=== PATIENT | female | born 1945 | race Caucasian/White ===

== ENCOUNTER → 2018-04-19 10:51 | Outpatient (CLI) | payer MEDICARE, SELFPAY ==
[2018-04-19 12:39] LABS: Anion Gap 6 (5-15); BUN 14 mg/dL (7-18); BUN/Creat Ratio 16.3 RATIO (10-20); Calcium,Total 9.4 mg/dL (8.5-10.1); Chloride 101 mmol/L (98-107); Cholesterol 144 mg/dL (200); Creatinine, Serum 0.86 mg/dL (0.55-1.02); EST Glomerular Filtration Rate 69 mL/min (>60); Est Glom Filt Rate - Afr Amer 83 mL/min (>60); Glucose 94 mg/dL (74-106); High Density Lipoprotein 54 mg/dL; Potassium 3.8 mmol/L (3.5-5.1); Sodium Level 137 mmol/L (136-145); Triglycerides 86 mg/dL; Very Low Density Lipoprotein 17 mg/dL (5-40)
== END ==
PROVIDERS: Family Provider Family Medicine; PCP Family Medicine; Referring Provider Family Medicine; Visit Provider Family Medicine
DX: E78.00 Pure hypercholesterolemia, unspecified (principal); I10 Essential (primary) hypertension
CPT/HCPCS: 36415; 80048; 80061

== ENCOUNTER → 2019-04-18 11:28 | Outpatient (CLI) | payer MEDICARE, SELFPAY ==
[2019-04-18 14:23] LABS: Absolute Lymphocyte Count 2.03 X10^3/uL (0.83-4.51); Absolute Neutrophil Count 2.6 X10^3/uL (2.0-7.7); Basophil# 0.03 X10^3/uL; Basophil% 0.6 % (0-1); Eosinophil# 0.03 X10^3/uL; Eosinophils% 0.6 % (0-5); Hemoglobin 14.4 g/dL (12.0-15.0); Lymphocyte # 2.03 X10^3/ul (4.0); Lymphocyte % 38.4 % (19-41); Mean Corp Hgb Conc 31.3 g/dL (32-36); Mean Corpuscular Hgb 31.1 pg (27.0-32.0); Mean Corpuscular Volume 99.4 fL (81-99); Mean Platelet Vol. 10.8 fl (6.2-12.0); Monocyte# 0.58 X10^3/uL; NRBC Flagged by Analyzer 0 % (0-5); Neutrophil # 2.61 X10^3/uL (2.7-7.7); Neutrophil % 49.2 % (47-70); Platelet Count 147 K/mm3 (150-450); RBC Distribution Width CV 12.7 % (11.6-14.6); RBC Distribution Width SD 46.4 fl (35.1-43.9); Red Blood Count 4.63 M/mm3 (4.2-5.4); White Blood Count 5.3 K/mm3 (4.4-11.0)
[2019-04-18 15:02] LABS: Anion Gap 9 (5-15); BUN 17 mg/dL (7-18); BUN/Creat Ratio 21.2 RATIO (10-20); Calcium,Total 9.4 mg/dL (8.5-10.1); Chloride 103 mmol/L (98-107); Cholesterol 154 mg/dL (200); EST Glomerular Filtration Rate 74 mL/min (>60); Est Glom Filt Rate - Afr Amer 89 mL/min (>60); Glucose 72 mg/dL (74-106); High Density Lipoprotein 64 mg/dL; Potassium 3.9 mmol/L (3.5-5.1); Sodium Level 141 mmol/L (136-145); Triglycerides 79 mg/dL; Very Low Density Lipoprotein 16 mg/dL (5-40)
== END ==
PROVIDERS: Family Provider Family Medicine; PCP Family Medicine; Referring Provider Family Medicine; Visit Provider Family Medicine
DX: I49.1 Atrial premature depolarization (principal); E78.00 Pure hypercholesterolemia, unspecified; I10 Essential (primary) hypertension
CPT/HCPCS: 36415; 80048; 80061; 85025

== ENCOUNTER → 2020-06-09 09:19 | Outpatient (CLI) | payer MEDICARE, SELFPAY ==
[2020-06-09 12:42] LABS: AST(SGOT) 30 U/L (15-37); Alanine Aminotransfer ALT/SGPT 37 U/L (13-56); Anion Gap 3 (5-15); BUN 16 mg/dL (7-18); BUN/Creat Ratio 18.6 RATIO (10-20); Chloride 101 mmol/L (98-107); Cholesterol 158 mg/dL (200); Creatinine, Serum 0.86 mg/dL (0.55-1.02); EST Glomerular Filtration Rate 68 mL/min (>60); Est Glom Filt Rate - Afr Amer 82 mL/min (>60); Glucose 89 mg/dL (74-106); High Density Lipoprotein 61 mg/dL; Potassium 3.8 mmol/L (3.5-5.1); Sodium Level 137 mmol/L (136-145); Triglycerides 108 mg/dL; Very Low Density Lipoprotein 22 mg/dL (5-40)
== END ==
PROVIDERS: PCP Family Medicine; Referring Provider Family Medicine; Visit Provider Family Medicine
DX: I10 Essential (primary) hypertension (principal); E78.00 Pure hypercholesterolemia, unspecified
CPT/HCPCS: 36415; 80048; 80061; 84450; 84460

== ENCOUNTER → 2020-12-17 10:45 | Outpatient (CLI) | payer MEDICARE, SELFPAY ==
[2020-12-17 13:08] LABS: AST(SGOT) 38 U/L (15-37); Alanine Aminotransfer ALT/SGPT 30 U/L (13-56); Anion Gap 7 (5-15); BUN 16 mg/dL (7-18); BUN/Creat Ratio 19.3 RATIO (10-20); Calcium,Total 9.3 mg/dL (8.5-10.1); Chloride 101 mmol/L (98-107); Cholesterol 156 mg/dL (200); Creatinine, Serum 0.83 mg/dL (0.55-1.02); EST Glomerular Filtration Rate 71 mL/min (>60); Est Glom Filt Rate - Afr Amer 86 mL/min (>60); Glucose 86 mg/dL (74-106); High Density Lipoprotein 63 mg/dL; Potassium 3.8 mmol/L (3.5-5.1); Sodium Level 137 mmol/L (136-145); Triglycerides 84 mg/dL; Very Low Density Lipoprotein 17 mg/dL (5-40)
== END ==
PROVIDERS: PCP Family Medicine; Referring Provider Family Medicine; Visit Provider Family Medicine
DX: E78.00 Pure hypercholesterolemia, unspecified (principal); I10 Essential (primary) hypertension
CPT/HCPCS: 36415; 80048; 80061; 84443; 84450; 84460

== ENCOUNTER → 2020-12-20 10:19 | Outpatient (CLI) | payer MEDICARE, SELFPAY ==
--- NOTE | 2020-12-20 10:21 | RAD_ITS ---
STUDY: X-RAY - ABDOMEN/PELVIS REASON FOR EXAM: Female, 75 years old. CONSTIPATION TECHNIQUE: AP supine and upright views of the abdomen and pelvis. COMPARISON: None. FINDINGS: Normal visualized lung bases. There is a moderate amount of colonic fecal material. There is no demonstrated free abdominal air. The visualized liver, spleen and kidneys are grossly normal in size and morphology. Aortic calcification Normal visualized osseous structures. RAD/Abd Inc Decub and/or Erect IMPRESSION: Moderate amount of fecal material is seen in the colon. Electronically Signed: Campbell Hudson MD at 10:30 EDT , Service support ,
== END ==
PROVIDERS: PCP Family Medicine; Referring Provider Family Medicine; Visit Provider Family Medicine
DX: K59.00 Constipation, unspecified (principal)
CPT/HCPCS: 74019

== ENCOUNTER → 2021-02-18 13:05 | Outpatient (CLI) | payer MEDICARE, SELFPAY ==
[2021-02-18 15:55] LABS: Thyroid Stim Hormone (TSH) 0.03 uIU/mL (0.358-3.74)
== END ==
PROVIDERS: PCP Family Medicine; Referring Provider Family Medicine; Visit Provider Family Medicine
DX: E03.9 Hypothyroidism, unspecified (principal)
CPT/HCPCS: 36415; 84443

== ENCOUNTER → 2021-04-22 12:13 | Outpatient (CLI) | payer MEDICARE, SELFPAY ==
[2021-04-22 15:37] LABS: Thyroid Stim Hormone (TSH) 5.29 uIU/mL (0.358-3.74)
== END ==
PROVIDERS: PCP Family Medicine; Referring Provider Family Medicine; Visit Provider Family Medicine
DX: K59.00 Constipation, unspecified (principal)
CPT/HCPCS: 36415; 84443

== ENCOUNTER → 2021-06-18 10:52 | Outpatient (CLI) | payer MEDICARE, SELFPAY ==
[2021-06-18 11:52] LABS: Thyroid Stim Hormone (TSH) 5.16 uIU/mL (0.358-3.74)
== END ==
PROVIDERS: PCP Family Medicine; Referring Provider Family Medicine; Visit Provider Family Medicine
DX: E03.9 Hypothyroidism, unspecified (principal)
CPT/HCPCS: 36415; 84443

== ENCOUNTER 2021-09-01 09:57 | Outpatient (CLI) | payer MEDICARE, SELFPAY ==
[2021-09-01 12:44] LABS: Thyroid Stim Hormone (TSH) 0.63 uIU/mL (0.358-3.74)
== END 2021-09-01 23:59 | disposition home or self-care (01) ==
LOC: MFPLAB 10:00
PROVIDERS: PCP Family Medicine; Referring Provider Family Medicine; Visit Provider Family Medicine
DX: E03.9 Hypothyroidism, unspecified (principal)
CPT/HCPCS: 36415; 84443

== ENCOUNTER 2022-04-22 07:35 | Inpatient (IN) | payer MEDICARE, SELFPAY ==
[2022-04-22] VITALS (11 sets, daily range): BP systolic 122–167; BP diastolic 56–92; PULSE 52–127; RESP 15–23; TEMP 36.2–36.8; O2SAT 97–100; BMI 21.2
--- NOTE | 2022-04-22 07:52 | EKG12_ITS ---
Test Reason : DYSRHYTHMIA Blood Pressure : / mmHG Vent. Rate : 062 BPM Atrial Rate : 062 BPM P-R Int : 142 ms QRS Dur : 078 ms QT Int : 424 ms P-R-T Axes : 058 053 -31 degrees QTc Int : 430 ms Normal sinus rhythm ST & T wave abnormality, consider lateral ischemia Abnormal ECG Confirmed by NILA BUCHANAN, MAURA ([id number]), editorial intern DOTTY RAI ([id number]) on 04/25/2022 1:44:12 PM Referred By: SAM Confirmed By:MAURA DOTSON MD
[2022-04-22 08:05] LABS: Absolute Lymphocyte Count 2.83 X10^3/uL (0.83-4.51); Basophil# 0.02 X10^3/uL; Basophil% 0.4 % (0-1); Eosinophil# 0.07 X10^3/uL; Eosinophils% 1.3 % (0-5); Hematocrit 46.3 % (37-47); Hemoglobin 14.8 g/dL (12.0-15.0); Lymphocyte # 2.83 X10^3/ul (0.83-4.51); Lymphocyte % 51.5 % (19-41); Mean Corpuscular Hgb 30.8 pg (27.0-32.0); Mean Corpuscular Volume 96.5 fL (81-99); Mean Platelet Vol. 10.2 fl (6.2-12.0); Monocyte% 10.9 % (0-10); NRBC Flagged by Analyzer 0 % (0-5); Neutrophil # 1.97 X10^3/uL (2.7-7.7); Neutrophil % 35.7 % (47-70); Platelet Count 147 K/mm3 (150-450); RBC Distribution Width CV 12.2 % (11.6-14.6); RBC Distribution Width SD 43.7 fl (35.1-43.9); White Blood Count 5.5 K/mm3 (4.4-11.0)
--- NOTE | 2022-04-22 08:31 | EX.ED.DYSGE1 ---
HPI History of Present Illness Chief Complaint: Palpitations Detail of Chief Complaint: Palpitations that started early this morning prior to presentation. Informant: patient and family Onset/Context/Timing Onset: Hours Context: Sudden Onset Timing: Continuous Quality: Palpitations and fast heart rate Location: Chest Current Severity: Mild Maximum Severity: Moderate Worsened by: Nothing Relieved by: Nothing Associated Symptoms Associated Symptoms: Chest discomfort with bilateral trapezius discomfort Narrative Narrative: DentalPatient is a 76-year-old woman with history of PACs on all. She also has history of hypercholesterolemia. She denies history of coronary artery disease. She denies history of thyroid disease. She denies weight gain or weight loss. She denies fever, chills night sweats. She had symptoms of COVID 2 weeks ago and had a positive test 1 week ago. She presently has mild nasal congestion. She denies nausea, vomiting or diarrhea. She denies urologic symptoms. She denies leg pain, swelling or discoloration. There is no history of VTE. Prior similar symptoms: Yes Recent Illness/Hospitalization: No PFSH PFS Medical History High cholesterol Hypertension Home Medications atenolol 50 mg tablet 50 mg PO DAILY 04/22/22 [History Last Taken Unknown] lovastatin 40 mg tablet 40 mg PO DAILY 04/22/22 [History Last Taken Unknown] Allergy/AdvReac Type Severity Reaction Status Date / Time No Known Allergies Allergy Verified 04/22/22 07:36 Social History (Updated 04/22/22 @ 08:[address] Hiram Giles MD) household members: none Smoking Status: Never smoker alcohol intake: never substance use type: does not use ROS ROS ED Constitutional Constitutional ED: Denies chills, fever(s), subjective, sweats or weight loss Eyes Eyes: Denies blurry vision, change in vision or diplopia ENT ENT ED: Denies ear pain, rhinorrhea or sore throat Cardiovascular Cardiovascular: Reports chest pain, palpitations and racing heartbeat; Denies orthopnea or paroxysmal nocturnal dyspnea Respiratory/Chest Respiratory/Chest: Denies cough, dyspnea, dyspnea on exertion, orthopnea or paroxysmal nocturnal dyspnea Gastrointestinal Gastrointestinal: Denies abdominal pain, constipation, diarrhea, melena, nausea or vomiting Genitourinary Genitourinary ED: Denies dysuria, hematuria or urinary frequency Musculoskeletal Musculoskeletal: Denies arthralgias, back pain, myalgias or neck pain Integumentary Denies Abrasions or rash Neurologic Neurologic: Denies headache(s), paresthesias or weakness Psychiatric Psychiatric: Denies anxiety or depression Endocrine Endocrinology: Denies cold intolerance, heat intolerance, polydipsia, polyphagia or polyuria Hematologic/Lymphatic Hematologic/Lymphatic: Reports systems reviewed and no addt'l complaints, except as documented, as per HPI and none; Denies anemia or easy bruising EXAM Physical Exam Const Vital Signs: 04/22/22 07:36 04/22/22 07:49 04/22/22 08:42 Temperature 97.9 F Temperature Source Temporal Pulse Rate 127 H 56 L 52 L Respiratory Rate 18 17 Blood Pressure 167/92 H 142/66 H Blood Pressure Mean 117 91 Pulse Ox 99 98 Oxygen Delivery Method Room Air Room Air 04/22/22 11:51 04/22/22 12:39 04/22/22 13:00 Temperature Temperature Source Pulse Rate 62 56 L 77 Respiratory Rate 23 H 20 H Blood Pressure 147/65 H 152/56 H 122/58 H Blood Pressure Mean 92 88 79 Pulse Ox 98 100 99 Oxygen Delivery Method Room Air Room Air Room Air Positive well nourished and well developed General Appearance ED: well developed and NAD; Negative for cyanotic or diaphoretic HEENT Reports moist mucous membranes HEENT Narrative: Head is atraumatic normocephalic. Ears normal. Nares patent. Uvula midline. No deviation tongue or protrusion. No erythema or exudate the posterior pharynx. Eyes PERRL and EOMs intact bilaterally General Eye ED: Negative for pale conjunctiva or scleral icterus Neck no lymphadenopathy, supple and no JVD Neck Narrative: There is no carotid bruits. Trachea is midline. Chest Wall inspection of chest normal and palpation of chest normal Resp normal respiratory effort and clear to auscultation bilaterally Cardio regular rhythm, S1 normal heart sound, S2 normal heart sound and no murmurs Rate: bradycardia GI normal to inspection, nondistended, normoactive bowel sounds, non-tender, non-distended and no masses; Negative for hepatosplenomegaly Back/Spine no CVA tenderness Thoracic Spine / Upper Back: Negative for thoracic spinal tenderness Lumbar Spine / Lower Back: Negative for lumbar spinal tenderness Extremity normal to inspection Neuro oriented x3, CN's II-XII intact bilaterally and no sensory deficits noted Sensorium / Orientation: alert Motor Exam: strength 5/5 throughout Psych mental status grossly normal Skin no rashes or lesions noted, no wounds and skin turgor normal MDM MDM MDM Narrative Medical decision making narrative: His monitor revealed a narrow complex tachycardia. There was significant artifact and unable to discern if this was sinus tachycardia versus atypical a flutter versus PAT. Twelve-lead EKG was obtained and reveals a sinus rhythm with no obvious ischemic changes. There is an ossific ST-T wave changes noted. Will obtain TSH to rule out thyroid disease. CBC to assess for anemia. Electrolyte panels assess renal function and electrolytes and specifically potassium. Troponin was obtained because of her complaint of chest discomfort and bilateral trapezius pain rule out cardiac etiology of her tachycardia. This may be due to recent COVID infection i.e. myocarditis. There is no evidence of pericarditis on the twelve-lead EKG. Lab Data Attestation: I reviewed the patient's lab results. Lab results narrative: CBC is remarkable for lymphocytosis. This is probably related to her recent COVID infection. Basic metabolic panel is unremarkable. Blood sugar is slightly elevated 112. First troponin is normal. 2-hour troponin pending. TSH is 0.31. Patient states she is on levothyroxine. Her dose has not been changed recently. This could contribute to her tachycardia as well as post COVID infection. Repeat pulmonary is 1329. This is consistent with patient having a non-STEMI. Dr. Ross had the cardiology was contacted to discuss anticoagulation and administration of Plavix. Labs: Laboratory Results - last 24 hr 04/22/22 04/22/22 04/22/22 07:55 07:55 07:55 WBC 5.5 RBC 4.80 Hgb 14.8 Hct 46.3 MCV 96.5 MCH 30.8 MCHC 32.0 RDW Std Deviation 43.7 RDW Coeff of Shi 12.2 Plt Count 147 L MPV 10.2 Immature Gran % (Auto) 0.200 Neut % (Auto) 35.7 L Lymph % (Auto) 51.5 H Cass % (Auto) 10.9 H Eos % (Auto) 1.3 Baso % (Auto) 0.4 Absolute Neuts (auto) 2.0 Absolute Lymphs (auto) 2.83 Nucleated RBC % 0 Sodium 140 Potassium 3.6 Chloride 103 Carbon Dioxide 28.0 Anion Gap 9 BUN 25 H Creatinine 0.95 Estim Creat Clear Calc 35.06 Est GFR (MDRD) Af Amer 73 Est GFR (MDRD) Non-Af 60 BUN/Creatinine Ratio 26.3 H Glucose 112 H Calcium 9.8 Troponin I High Sens 16 1329 H* TSH 0.31 L Rhythm Strip Rhythm Strip: Narrow complex tachycardia Rate: 128 EKG Initial EKG: Attestation: I personally reviewed and interpreted this EKG as follows: Interpretation: Sinus Rhythm (Rate is 62. MT interval 242 ms. Cures duration 78 ms. QT duration 4 to 24 ms. [place] is normal. There is an ossific ST-T wave changes in the lateral leads.) Treatment and Re-Evaluation Narrative: Patient will receive aspirin in the Emergency Department. Will discuss case with cardiology regarding anticoagulation and antiplatelets i.e. Plavix. Critical Care Time Critical Care Time: Yes Critical care time (excluding procedures): 30-74 minutes (32), Including time spent: (History, physical, documentation, review of prior records,), Discussing w/Patient &/or Family/Sr. Pricing Analyst (Discussion with patient initially, reevaluation and reason for repeat blood work and final results require admission), Discussing w/Consultants (Case discussed with Dr. Mosley the human resources operations manager. He would like patient anticoagulate with heparin. He does not want patient received Plavix.) and Arranging Admission or Transfer Discharge Plan Triage Chief Complaint: Palpitations ED Provider: Hiram Giles Dx/Rx/DC Orders Clinical Impression: Non-ST elevated myocardial infarction, Hypertension, Hypercholesterolemia Prescriptions: No Action lovastatin 40 mg tablet 40 mg PO DAILY Label Comments: TAKE 1 TABLET BY MOUTH ONCE DAILY atenolol 50 mg tablet 50 mg PO DAILY Label Comments: TAKE 1 TABLET BY MOUTH ONCE DAILY Primary Care Provider: Silke Solorio Referrals: Silke Solorio MD [Primary Care Provider] - Disposition Disposition: Acute Care Hospital [facility]
[2022-04-22 08:42] LABS: Anion Gap 9 (5-15); BUN 25 mg/dL (7-18); BUN/Creat Ratio 26.3 RATIO (10-20); Calcium,Total 9.8 mg/dL (8.5-10.1); Chloride 103 mmol/L (98-107); Creatinine, Serum 0.95 mg/dL (0.55-1.02); EST Glomerular Filtration Rate 60 mL/min (>60); Est Glom Filt Rate - Afr Amer 73 mL/min (>60); Estimated Creatinine Clearance 35.06 ml/min; Glucose 112 mg/dL (74-106); Potassium 3.6 mmol/L (3.5-5.1); Sodium Level 140 mmol/L (136-145); Thyroid Stim Hormone (TSH) 0.31 uIU/mL (0.358-3.74); Troponin-I HS 16 pg/mL (3.0-54.0)
[2022-04-22 13:38] LABS: Reflex Troponin-HS? (from REC) Y; Troponin-I HS (w/2H Reflex) 1329 pg/mL (3.0-54.0)
--- NOTE | 2022-04-22 13:49 | RAD_ITS ---
STUDY: X-RAY CHEST REASON FOR EXAM: Female, 76 years old. Chest pain TECHNIQUE: Single frontal view of the chest. COMPARISON: None. FINDINGS: The lungs are clear and expanded. There is no demonstrated pleural abnormality. Normal size heart. Normal mediastinum and michelle. Normal visualized pulmonary arteries. Normal visualized aortic arch and descending thoracic aorta. Normal visualized thoracic spine. Normal visualized ribs, clavicles, and shoulders. There is no demonstrated abnormality of the visualized soft tissue structures of the upper abdomen. RAD/Chest 1 View (Portable) IMPRESSION: Normal x-ray examination of the chest. Electronically Signed: Marilou Hernandez MD at 14:02 EDT ,
[2022-04-22] MEDS: Aspirin 81 MG TAB.CHEW 324 MG PO (13:58)
--- NOTE | 2022-04-22 14:28 | PCM.HP.STD ---
HPI - General General Date of Admission: 04/22/22 Date of Service: 04/22/22 Chief Complaint: Rapid pulse and chest discomfort. HPI Narrative JEOVANNY VAZ, is a 76 F with history of PACs/PVCs came to ED as she felt her pulse was racing. She counted her radial pulse and felt very fast although she did not feel much palpitation. She had feeling of irregular heartbeat/sometimes a skipped heartbeat today. She has history of PACs PVCs and had flutter waves feeling in the past. She also had Holter monitor. Her PCP started on Inderal long time ago for this indication. She also had mild achiness/discomfort over neck around her trapezius muscle and upper chest but denies chest pain, tightness or pressure. She denies dizziness lightheadedness, syncope. In the ED, rhythm strip and press manager shows heart rate 125 with PACs. Twelve-lead EKG sinus rhythm 62 bpm, IA 242 ms, QTC [address] depression about 1 mm in V3 to V6. No prior EKG to compare. Troponin is high, 1329. She has a history of hypertension and dyslipidemia but denies history of coronary artery disease, CHF, A. fib, valvular heart disease or other heart disease. Patient's father had pacemaker. Her elder sister recently had PCI and a stent. Her brother had bypass surgery. [facility] Medical History High cholesterol Hypertension Home Medications atenolol 50 mg tablet 50 mg PO DAILY 04/22/22 [History Last Taken Unknown] lovastatin 40 mg tablet 40 mg PO DAILY 04/22/22 [History Last Taken Unknown] Allergy/AdvReac Type Severity Reaction Status Date / Time No Known Allergies Allergy Verified 04/22/22 07:36 Social History household members: none Smoking Status: Never smoker alcohol intake: never substance use type: does not use ROS ROS Narrative Constitutional: No fever. HEENT: Mild sore throat. Reports systems reviewed and no addt'l complaints, except as documented Respiratory/Chest: Mild dry cough for about 2 weeks getting better. Had COVID symptoms for last 2 weeks tested positive about a week ago. Denies shortness of breath at rest or exertion Cardiovascular: As mentioned in HPI Gastrointestinal: Denies coffee ground emesis, hematemesis or vomiting Genitourinary: Denies burning urination or new urinary tract symptoms Musculoskeletal: Reports joint pain and limited range of motion Neurologic: Denies seizure-like activity skin: No ulcer. No rash Endocrinology: Reports systems reviewed and no addt'l complaints, except as documented Hematologic/Lymphatic: Reports systems reviewed and no addt'l complaints, except as documented Rest 14 ROS are negative except as mentioned in HPI Vital Signs Vital Signs Vital Signs: 04/22/22 07:36 04/22/22 07:49 04/22/22 08:42 Temperature 97.9 F Temperature Source Temporal Pulse Rate 127 H 56 L 52 L Respiratory Rate 18 17 Blood Pressure 167/92 H 142/66 H Blood Pressure Mean 117 91 Pulse Ox 99 98 Oxygen Delivery Method Room Air Room Air 04/22/22 11:51 04/22/22 12:39 04/22/22 13:00 Temperature Temperature Source Pulse Rate 62 56 L 77 Respiratory Rate 23 H 20 H Blood Pressure 147/65 H 152/56 H 122/58 H Blood Pressure Mean 92 88 79 Pulse Ox 98 100 99 Oxygen Delivery Method Room Air Room Air Room Air Weight Weight: 108 lb 7.479 oz Body Mass Index (BMI) 21.2 Physical Exam Narrative Physical exam General: Alert, Oriented x3, Cooperative HEENT: Atraumatic, PERRLA, EOMI, Normocephalic Oral: No Gingival or Mucosal Lesions/ Ulcerations Neck: Supple, No JVD, Negative Carotid Bruits Lungs: Air entry equal in bilateral lung bases. No crepitation/rhonchi Cardiovascular: Sinus, PAC, irregular rhythm, normal S1, Normal S2, No murmurs Abdomen: Bowel Sounds Present, Soft, Non Tender, Non-Distended : No renal angle tenderness. No suprapubic tenderness. Extremities: No edema, Capillary Refill Less than 3 Seconds Skin: No rashes, No breakdown Musculoskeletal: No Tenderness to Palpation of Joints or Extremities Neurological: Cranial nerves II-XII grossly intact, DTR 2+/4 and Symmetrical, Neuro grossly intact Psych/Mental Status: Normal Affect, Appropriate. Results Lab / Micro Data Result Diagrams: 04/22/22 07:55 04/22/22 07:55 Labs: Laboratory Results - last 24 hr 04/22/22 07:55: WBC 5.5, RBC 4.80, Hgb 14.8, Hct 46.3, MCV 96.5, MCH 30.8, MCHC 32.0, RDW Std Deviation 43.7, RDW Coeff of Shi 12.2, Plt Count 147 L, MPV 10.2, Immature Gran % (Auto) 0.200, Neut % (Auto) 35.7 L, Lymph % (Auto) 51.5 H, Coke % (Auto) 10.9 H, Eos % (Auto) 1.3, Baso % (Auto) 0.4, Absolute Neuts (auto) 2.0, Absolute Lymphs (auto) 2.83, Nucleated RBC % 0 04/22/22 07:55: Sodium 140, Potassium 3.6, Chloride 103, Carbon Dioxide 28.0, Anion Gap 9, BUN 25 H, Creatinine 0.95, Estim Creat Clear Calc 35.06, Est GFR (MDRD) Af Amer 73, Est GFR (MDRD) Non-Af 60, BUN/Creatinine Ratio 26.3 H, Glucose 112 H, Calcium 9.8, Troponin I High Sens 16, TSH 0.31 L 04/22/22 13:07: Troponin I High Sens 1329 H* 04/22/22 13:58: PT Cancelled, INR Cancelled, APTT Cancelled Rhythm Strip Rhythm Strip: Narrow complex tachycardia Rate: 128 Radiology Impression Chest X-Ray 04/22/22 13:49 IMPRESSION: Normal x-ray examination of the chest. Electronically Signed: Marilou Hernandez MD at 14:02 EDT , Assessment & Plan Assessment/Plan (1) Non-ST elevated myocardial infarction: PLAN: Plan This 76-year-old female came to ED for narrow complex sinus tachycardia and found to have high troponin and abnormal EKG. 1. Non-STEMI: EKG shows slight ST depression V3 to V6. KRYSTEN risk score 4/7. Patient is being admitted in PCU. Started on IV heparin drip and aspirin. Patient already on amlodipine continued. High intensity statin atorvastatin. 2D echo is ordered. Cardiology consulted to evaluate for cardiac cath. Patient does not have chest pain pressure tightness. 2. Narrow complex sinus tachycardia most probably sinus tachycardia with PAC: Patient did not had twelve-lead EKG when she had sinus tachycardia. She has history of PACs/PVCs. Currently normal sinus rhythm and heart rate is controlled. 3. Abnormal low TSH: TSH is low 0.31, Slightly below low normal 0.35. Repeat TSH and free T4 tomorrow AM. 5. Hypertension and dyslipidemia: Fasting for all tomorrow AM. VTE prophylaxis: Patient on heparin drip Living will/advanced directive/end of life care: Patient does not have living will or advanced directive. We talked in detail with patient and daughter regarding living will or advanced directive. After discussion of benefits/risks procedures involved with full code, DNR CC arrest and DNR CC, the patient and her daughter opted for DNRCC arrest with no intubation. Patient doesn't want artificial life support including intubation, tube feed, ventilator and/chest compression, central venous catheter, vasopressor and DC shock if needed Total time spent in [id number] encounter in discussion of advanced directive 16 minutes. Laboratory Results 04/22/22 07:55: WBC 5.5, RBC 4.80, Hgb 14.8, Hct 46.3, MCV 96.5, MCH 30.8, MCHC 32.0, RDW Std Deviation 43.7, RDW Coeff of Shi 12.2, Plt Count 147 L, MPV 10.2, Immature Gran % (Auto) 0.200, Neut % (Auto) 35.7 L, Lymph % (Auto) 51.5 H, Coke % (Auto) 10.9 H, Eos % (Auto) 1.3, Baso % (Auto) 0.4, Absolute Neuts (auto) 2.0, Absolute Lymphs (auto) 2.83, Nucleated RBC % 0 04/22/22 07:55: Sodium 140, Potassium 3.6, Chloride 103, Carbon Dioxide 28.0, Anion Gap 9, BUN 25 H, Creatinine 0.95, Estim Creat Clear Calc 35.06, Est GFR (MDRD) Af Amer 73, Est GFR (MDRD) Non-Af 60, BUN/Creatinine Ratio 26.3 H, Glucose 112 H, Calcium 9.8, Troponin I High Sens 16, TSH 0.31 L 04/22/22 13:07: Troponin I High Sens 1329 H* Charges/Coding Visit Charges Inpatient E&M: 73463 Init Hosp L3 Procedures Hospitalists Procedures: 52933 Advncd Care Plan 30 Min
[2022-04-22] MEDS: Heparin Injection (Vial) 5,000 UNIT/ML VIAL 3500 UNIT IV (14:33)
[2022-04-22] MEDS: HEPARIN/D5w 25,000 UNITS 25,000 UNITS/250 ML IV.SOLN. 7 UNITS CONT INF (14:33)
--- NOTE | 2022-04-22 15:03 | ECHOD_ITS ---
Reason For Study: NSTEMI Procedure This was a 2D Doppler, Color Flow transthoracic echocardiogram. Exam performed portable in patient room. Left Ventricle The left ventricle is normal in size, thickness, and systolic function. The left ventricular ejection fraction is 60 %. Diastolic function is indeterminate. Right Ventricle Normal right ventricle. Atria The left atrium is severely enlarged. Mitral Valve Mild diffuse mitral valve thickening. Mild (1+) mitral valve insufficiency. Tricuspid Valve Trivial tricuspid valve insufficiency. Aortic Valve Normal aortic valve. Pulmonic Valve The pulmonic valve is not well visualized. Great Vessels Normal sized aortic root. Pericardium/Pleural No pericardial effusion. MMode/2D Measurements & Calculations LVIDd: 4.2 cm IVSd: 0.98 cm Ao root diam: 2.7 cm LVIDs: 2.8 cm LVPWd: 0.88 cm RVDd: 2.6 cm FS: 35.2 % LAV(MOD-bp): 70.8 ml LVAd ap4: 17.9 cm2 LVAd ap2: 15.0 cm2 LAV(MOD-bp) Indexed: 49.7 ml/m2 LVLd ap4: 5.9 cm LVLd ap2: 5.6 cm LAV(MOD-sp2): 67.2 ml EDV(MOD-sp4): 45.7 ml EDV(MOD-sp2): 35.2 ml LAV(MOD-sp4): 52.7 ml EDV(sp4-el): 46.1 ml EDV(sp2-el): 34.0 ml LVAs ap4: 10.0 cm2 LVAs ap2: 7.9 cm2 LVLs ap4: 5.3 cm LVLs ap2: 4.9 cm ESV(MOD-sp4): 18.3 ml ESV(MOD-sp2): 11.8 ml ESV(sp4-el): 16.0 ml ESV(sp2-el): 10.8 ml EF(MOD-sp4): 59.9 % EF(MOD-sp2): 66.5 % EF(sp4-el): 65.4 % SV(MOD-sp4): 27.4 ml SV(MOD-sp2): 23.4 ml SV(sp4-el): 30.1 ml LA dimension(2D): 2.8 cm LA A4 area: 17.1 cm2 Time Measurements MV dec time: 0.22 sec Doppler Measurements & Calculations MV E max oli: 69.1 cm/sec Lat Peak E' Oli: 6.0 cm/sec Med Peak E' Oli: 7.1 cm/sec MV A max oli: 49.5 cm/sec E/E' lat: 11.6 E/E' med: 9.7 MV E/A: 1.4 MV dec slope: 314.5 cm/sec2 Ao V2 max: 112.9 cm/sec LV V1 max: 75.5 cm/sec Ao max P.1 mmHg LV V1 max P.3 mmHg PA V2 max: 67.4 cm/sec ECHO/Echo Complete Interpretation Summary The left ventricular ejection fraction is 60 %. Diastolic function is indeterminate. The left atrium is severely enlarged. Ordering Physician: Jeferson Juan Referring Physician: Silke Solorio Performed By: Yamini Razo RDCS, RVT
--- NOTE | 2022-04-22 15:15 | EKG12_ITS ---
Test Reason : AM EKG Blood Pressure : / mmHG Vent. Rate : 054 BPM Atrial Rate : 054 BPM P-R Int : 150 ms QRS Dur : 070 ms QT Int : 474 ms P-R-T Axes : 086 059 028 degrees QTc Int : 449 ms Sinus bradycardia Nonspecific ST abnormality Abnormal ECG When compared with ECG of 22-APR-2022 15:45, MANUAL COMPARISON REQUIRED, DATA IS UNCONFIRMED Confirmed by NILA BUCHANAN, MAURA ([id number]), city editor DOTTY RAI ([id number]) on 04/25/2022 9:24:58 AM Referred By: Confirmed By:MAURA DOTSON MD
[2022-04-22 15:57] LABS: International Normalized Ratio 1.2; Prothrombin Time (Protime)PT. 14.8 SECONDS (11.7-14.9)
[2022-04-22 16:01] LABS: Phosphorus 3.2 mg/dL (2.5-4.9)
[2022-04-22 16:13] LABS: Partial Thromboplast Time > 200.0 Seconds (24.1-36.2)
[2022-04-22] MEDS: Lactated Ringers 1,000 ML 75 ML IV (16:28)
[2022-04-22 17:28] LABS: Troponin-I HS 1573 pg/mL (3.0-54.0)
[2022-04-22] MEDS: Atorvastatin Calcium 40 MG Tablet PO (21:36)
[2022-04-22] MEDS: Clopidogrel Bisulfate 75 MG Tablet PO (21:36)
[2022-04-23] VITALS (10 sets, daily range): BP systolic 128–148; BP diastolic 61–70; PULSE 56–63; RESP 16–20; TEMP 36.3–37; O2SAT 95–100
[2022-04-23 02:16] LABS: Partial Thromboplast Time 51.7 Seconds (24.1-36.2)
[2022-04-23] MEDS: Heparin Injection (Vial) 5,000 UNIT/ML VIAL IV (02:25)
[2022-04-23 07:04] LABS: Absolute Lymphocyte Count 3.08 X10^3/uL (0.83-4.51); Absolute Neutrophil Count 2.8 X10^3/uL (2.0-7.7); Basophil# 0.03 X10^3/uL; Basophil% 0.5 % (0-1); Eosinophil# 0.06 X10^3/uL; Eosinophils% 0.9 % (0-5); Hematocrit 43.8 % (37-47); Hemoglobin 13.5 g/dL (12.0-15.0); Lymphocyte # 3.08 X10^3/ul (0.83-4.51); Lymphocyte % 47.3 % (19-41); Mean Corp Hgb Conc 30.8 g/dL (32-36); Mean Corpuscular Hgb 30.5 pg (27.0-32.0); Mean Corpuscular Volume 98.9 fL (81-99); Mean Platelet Vol. 10.1 fl (6.2-12.0); Monocyte# 0.58 X10^3/uL; Monocyte% 8.9 % (0-10); NRBC Flagged by Analyzer 0 % (0-5); Neutrophil # 2.75 X10^3/uL (2.7-7.7); Neutrophil % 42.2 % (47-70); Platelet Count 147 K/mm3 (150-450); RBC Distribution Width CV 12.3 % (11.6-14.6); Red Blood Count 4.43 M/mm3 (4.2-5.4); White Blood Count 6.5 K/mm3 (4.4-11.0)
[2022-04-23 07:28] LABS: Anion Gap 6 (5-15); BUN 21 mg/dL (7-18); Calcium,Total 9.1 mg/dL (8.5-10.1); Chloride 107 mmol/L (98-107); Cholesterol 132 mg/dL (200); Creatinine, Serum 0.81 mg/dL (0.55-1.02); EST Glomerular Filtration Rate 73 mL/min (>60); Est Glom Filt Rate - Afr Amer 88 mL/min (>60); Estimated Creatinine Clearance 41.12 ml/min; Glucose 96 mg/dL (74-106); High Density Lipoprotein 51 mg/dL; Sodium Level 140 mmol/L (136-145); T4 Free Direct 1.13 ng/dL (0.76-1.46); Thyroid Stim Hormone (TSH) 0.52 uIU/mL (0.358-3.74); Triglycerides 68 mg/dL; Very Low Density Lipoprotein 14 mg/dL (5-40)
[2022-04-23] MEDS: Atenolol 50 MG Tablet PO (08:48)
[2022-04-23] MEDS: Aspirin E.C. 81 MG Tablet PO (08:48)
[2022-04-23] MEDS: Clopidogrel Bisulfate 75 MG Tablet PO (08:48)
[2022-04-23 09:22] LABS: Partial Thromboplast Time 70.9 Seconds (24.1-36.2)
[2022-04-23] MEDS: Levothyroxine 75 MCG Tablet PO (10:21)
--- NOTE | 2022-04-23 10:28 | PCM.CONS.C ---
Assessment & Plan Assessment/Plan (1) Non-ST elevated myocardial infarction: PLAN: Agree with starting aspirin and Plavix. Stop heparin. Discussed with patient. Offered coronary angiography and possible revascularization. Risks benefits and alternatives discussed. She understands these and wishes to proceed. We will schedule her for coronary angiography in the morning. (2) Narrow complex tachycardia: PLAN: Patient is on atenolol. We will switch to metoprolol twice daily. Patient likely will need an EP referral as outpatient. (3) Hypertension: PLAN: Controlled. (4) Hypercholesterolemia: PLAN: On lovastatin. (5) Low TSH level: PLAN: As per internal medicine. HPI Consult Data Date of Consult: 04/23/22 HPI Narrative Reason for Consultation: NSTEMI HPI Narrative: JEOVANNY VAZ, is a 76 F who presented to the emergency room with complaints of palpitations. According to her, she has history of palpitations and was started by her family practice doctor on atenolol. Her palpitations are usually self-limiting however yesterday they lasted for about 2 hours that is why she decided to come to the emergency room. According to her, she had some neck discomfort associated with it and possibly mild anterior chest discomfort. The telemetry strips from the ER suggested possible SVT. This was self-limiting. Patient denies any previous history of coronary artery disease. No history of angina. No dyspnea on exertion. [facility] Medical History (Updated 04/22/22 @ 15:42 by Federico Squires) High cholesterol Hypertension Hypothyroid Home Medications aspirin 81 mg chewable tablet 81 mg PO MOWEFR heart 04/22/22 [History Last Taken Unknown] atenolol 50 mg tablet 50 mg PO DAILY blood pressure 04/22/22 [History Last Taken Unknown] levothyroxine 75 mcg tablet 75 mcg PO DAILY thyroid 04/22/22 [History Last Taken Unknown] lovastatin 40 mg tablet 40 mg PO DAILY cholesterol 04/22/22 [History Last Taken Unknown] Allergy/AdvReac Type Severity Reaction Status Date / Time No Known Allergies Allergy Verified 04/22/22 07:36 Social History household members: none Smoking Status: Never smoker alcohol intake: never substance use type: does not use Physical Exam Narrative Comfortable. No distress. Heart sounds 1 and 2 are normal. No murmurs or rubs are noted. Chest is clear to auscultation bilaterally. Abdomen soft bowel sounds positive. Alert oriented x3. No ankle edema is noted to Risk Stratification Risk Stratification Applicable: No Objective Data Vital Signs: Vital Signs Temp Pulse Resp BP Pulse Ox O2 Del Method 97.6 F L 63 20 H 133/61 H 100 Room Air 04/23/22 09:35 04/23/22 09:35 04/23/22 09:35 04/23/22 09:35 04/23/22 09:35 04/23/22 09:39 Oxygen Delivery Method Room Air Weight: 111 lb 8.862 oz Body Mass Index (BMI) 21.2 Intake & Output: Intake and Output for Last 24 Hours 04/21/22 04/22/22 04/23/22 23:59 23:59 23:59 Intake Total 213.53 / 213.53 1032.73 / 1032.73 Balance 213.53 / 213.53 1032.73 / 1032.73 Lab / Micro Data Attestation: I reviewed the patient's lab results. Result Diagrams: 04/23/22 05:50 04/23/22 05:50 Labs: Laboratory Results - last 24 hr 04/22/22 07:55: Sodium 140, Potassium 3.6, Chloride 103, Carbon Dioxide 28.0, Anion Gap 9, BUN 25 H, Creatinine 0.95, Estim Creat Clear Calc 35.06, Est GFR (MDRD) Af Amer 73, Est GFR (MDRD) Non-Af 60, BUN/Creatinine Ratio 26.3 H, Glucose 112 H, Calcium 9.8, Troponin I High Sens 16, TSH 0.31 L 04/22/22 13:07: Troponin I High Sens 1329 H* 04/22/22 13:58: PT Cancelled, INR Cancelled, APTT Cancelled 04/22/22 14:38: PT Cancelled, INR Cancelled, APTT Cancelled 04/22/22 15:30: PT 14.8, INR 1.2, APTT > 200.0 H* 04/22/22 15:30: Magnesium 2.0 04/22/22 15:30: Phosphorus 3.2 04/22/22 15:30: Troponin I High Sens 1573 H* 04/23/22 01:57: APTT 51.7 H 04/23/22 05:50: WBC 6.5, RBC 4.43, Hgb 13.5, Hct 43.8, MCV 98.9, MCH 30.5, MCHC 30.8 L, RDW Std Deviation 45.0 H, RDW Coeff of Shi 12.3, Plt Count 147 L, MPV 10.1, Immature Gran % (Auto) 0.200, Neut % (Auto) 42.2 L, Lymph % (Auto) 47.3 H, [place] % (Auto) 8.9, Eos % (Auto) 0.9, Baso % (Auto) 0.5, Absolute Neuts (auto) 2.8, Absolute Lymphs (auto) 3.08, Nucleated RBC % 0 04/23/22 05:50: Sodium 140, Potassium 4.0, Chloride 107, Carbon Dioxide 27.0, Anion Gap 6, BUN 21 H, Creatinine 0.81, Estim Creat Clear Calc 41.12, Est GFR (MDRD) Af Amer 88, Est GFR (MDRD) Non-Af 73, BUN/Creatinine Ratio 26.0 H, Glucose 96, Calcium 9.1, Triglycerides 68, Cholesterol 132, LDL Cholesterol 67, VLDL Cholesterol 14, HDL Cholesterol 51, TSH 0.52, Free T4 1.13 04/23/22 08:06: APTT 70.9 H Micro: Microbiology 04/22/22 16:10 Nasal Secretion SARS-CoV-2 Antigen (Rapid) - Final Rhythm Strip Rhythm Strip: Narrow complex tachycardia Rate: 128 Cardiology Labs/Tests 04/22/22 07:55: Sodium 140, Potassium 3.6, Chloride 103, Carbon Dioxide 28.0, Anion Gap 9, BUN 25 H, Creatinine 0.95, Est GFR (MDRD) Af Amer 73, Est GFR (MDRD) Non-Af 60, BUN/Creatinine Ratio 26.3 H, Glucose 112 H, Calcium 9.8 04/22/22 13:58: PT Cancelled, INR Cancelled, APTT Cancelled 04/22/22 14:38: PT Cancelled, INR Cancelled, APTT Cancelled 04/22/22 15:30: PT 14.8, INR 1.2, APTT > 200.0 H* 04/22/22 15:30: Magnesium 2.0 04/22/22 15:30: Phosphorus 3.2 04/23/22 01:57: APTT 51.7 H 04/23/22 05:50: WBC 6.5, RBC 4.43, Hgb 13.5, Hct 43.8, MCV 98.9, MCH 30.5, MCHC 30.8 L, Plt Count 147 L, MPV 10.1, Immature Gran % (Auto) 0.200, Neut % (Auto) 42.2 L, Lymph % (Auto) 47.3 H, [place] % (Auto) 8.9, Eos % (Auto) 0.9, Baso % (Auto) 0.5, Absolute Neuts (auto) 2.8, Nucleated RBC % 0 04/23/22 05:50: Sodium 140, Potassium 4.0, Chloride 107, Carbon Dioxide 27.0, Anion Gap 6, BUN 21 H, Creatinine 0.81, Est GFR (MDRD) Af Amer 88, Est GFR (MDRD) Non-Af 73, BUN/Creatinine Ratio 26.0 H, Glucose 96, Calcium 9.1, Triglycerides 68, Cholesterol 132, LDL Cholesterol 67, VLDL Cholesterol 14, HDL Cholesterol 51 04/23/22 08:06: APTT 70.9 H Rhythm: Presently normal sinus rhythm EKG: Normal sinus rhythm. ST changes that may suggest ischemia. ECHO: Stress Test: Cardiac Cath: PCI: CT Surgery: Holter monitor: EPS: PPM: CXR: Chest CT Scan: Radiography Diagnostic Testing: Radiology Impression Chest X-Ray 04/22/22 13:49 IMPRESSION: Normal x-ray examination of the chest. Electronically Signed: Marilou Hernandez MD at 14:02 EDT ,
--- NOTE | 2022-04-23 12:34 | PN.HOSP_ITS ---
Subjective Subjective Follow-up for non-STEMI. Patient not any chest pain or shortness of breath on exertion. Occasional feeling of flutter waves. No dizziness lightheadedness or syncope. Objective Data Objective Data Vital Signs: Vital Signs Temp Pulse Resp BP Pulse Ox O2 Del Method 97.6 F L 63 20 H 133/61 H 100 Room Air 04/23/22 09:35 04/23/22 09:35 04/23/22 09:35 04/23/22 09:35 04/23/22 09:35 04/23/22 09:39 Oxygen Delivery Method Room Air Weight: 111 lb 8.862 oz Body Mass Index (BMI) 21.2 Intake & Output: Intake and Output for Last 24 Hours 04/21/22 04/22/22 04/23/22 23:59 23:59 23:59 Intake Total 213.53 / 213.53 1074.31 / 1074.31 Balance 213.53 / 213.53 1074.31 / 1074.31 Lab / Micro Data Result Diagrams: 04/23/22 05:50 04/23/22 05:50 Labs: Laboratory Results - last 24 hr 04/22/22 07:55: Sodium 140, Potassium 3.6, Chloride 103, Carbon Dioxide 28.0, Anion Gap 9, BUN 25 H, Creatinine 0.95, Estim Creat Clear Calc 35.06, Est GFR (MDRD) Af Amer 73, Est GFR (MDRD) Non-Af 60, BUN/Creatinine Ratio 26.3 H, Glucose 112 H, Calcium 9.8, Troponin I High Sens 16, TSH 0.31 L 04/22/22 13:07: Troponin I High Sens 1329 H* 04/22/22 13:58: PT Cancelled, INR Cancelled, APTT Cancelled 04/22/22 14:38: PT Cancelled, INR Cancelled, APTT Cancelled 04/22/22 15:30: PT 14.8, INR 1.2, APTT > 200.0 H* 04/22/22 15:30: Magnesium 2.0 04/22/22 15:30: Phosphorus 3.2 04/22/22 15:30: Troponin I High Sens 1573 H* 04/23/22 01:57: APTT 51.7 H 04/23/22 05:50: WBC 6.5, RBC 4.43, Hgb 13.5, Hct 43.8, MCV 98.9, MCH 30.5, MCHC 30.8 L, RDW Std Deviation 45.0 H, RDW Coeff of Shi 12.3, Plt Count 147 L, MPV 10.1, Immature Gran % (Auto) 0.200, Neut % (Auto) 42.2 L, Lymph % (Auto) 47.3 H, [place] % (Auto) 8.9, Eos % (Auto) 0.9, Baso % (Auto) 0.5, Absolute Neuts (auto) 2.8, Absolute Lymphs (auto) 3.08, Nucleated RBC % 0 04/23/22 05:50: Sodium 140, Potassium 4.0, Chloride 107, Carbon Dioxide 27.0, Anion Gap 6, BUN 21 H, Creatinine 0.81, Estim Creat Clear Calc 41.12, Est GFR (MDRD) Af Amer 88, Est GFR (MDRD) Non-Af 73, BUN/Creatinine Ratio 26.0 H, Glucose 96, Calcium 9.1, Triglycerides 68, Cholesterol 132, LDL Cholesterol 67, VLDL Cholesterol 14, HDL Cholesterol 51, TSH 0.52, Free T4 1.13 04/23/22 08:06: APTT 70.9 H Micro: Microbiology 04/22/22 16:10 Nasal Secretion SARS-CoV-2 Antigen (Rapid) - Final Radiography Diagnostic Testing: Radiology Impression Chest X-Ray 04/22/22 13:49 IMPRESSION: Normal x-ray examination of the chest. Electronically Signed: Marilou Hernandez MD at 14:02 EDT , Rhythm Strip Rhythm Strip: Narrow complex tachycardia Rate: 128 Physical Exam Narrative Seen and examined. monitoring manager shows sinus rhythm with occasional PACs. Physical exam General: Alert, Oriented x3, Cooperative HEENT: Atraumatic, PERRLA, EOMI, Normocephalic Oral: No Gingival or Mucosal Lesions/ Ulcerations Neck: Supple, No JVD, Negative Carotid Bruits Lungs: Air entry equal in bilateral lung bases. No crepitation/rhonchi Cardiovascular: Sinus, PAC, normal S1, Normal S2, systolic murmur over cardiac apex. Abdomen: Bowel Sounds Present, Soft, Non Tender, Non-Distended : No renal angle tenderness. No suprapubic tenderness. Extremities: No edema, Capillary Refill Less than 3 Seconds Skin: No rashes, No breakdown Musculoskeletal: No Tenderness to Palpation of Joints or Extremities Neurological: Cranial nerves II-XII grossly intact, DTR 2+/4 and Symmetrical, Neuro grossly intact Psych/Mental Status: Normal Affect, Appropriate. Assessment & Plan Assessment/Plan (1) Non-ST elevated myocardial infarction: PLAN: Plan This 76-year-old female came to ED for narrow complex sinus tachycardia and found to have high troponin and abnormal EKG. 1. Non-STEMI: EKG shows slight ST depression V3 to V6. KRYSTEN risk score 4/7. Patient is being admitted in PCU. Started on IV heparin drip and aspirin. Patient already on amlodipine continued. High intensity statin atorvastatin. 2D echo is ordered. Cardiology consulted to evaluate for cardiac cath. Patient does not have chest pain pressure tightness. 04/23: Patient seen by analytical scientist. On aspirin, Plavix. Recommended to stop heparin drip. Coronary angiography scheduled for tomorrow morning. 2. Narrow complex tachycardia most probably sinus tachycardia with PAC: Patient did not had twelve-lead EKG when she had sinus tachycardia. She has history of PACs/PVCs. Currently normal sinus rhythm and heart rate is controlled. 04/23: Atenolol switched to metoprolol twice daily. Will likely need EP referral as an outpatient. 3. Abnormal low TSH probably lab error/variation: TSH is low 0.31, Slightly below low normal 0.35. 04/23: Repeat TSH and free T4 normal. Continue patient home dose of Synthroid 75 mcg daily. 5. Hypertension and dyslipidemia: Fasting lipid profile shows LDL 67, TG 68, total cholesterol 132 and HDL 51 all in normal range. VTE prophylaxis: Patient on heparin drip Living will/advanced directive/end of life care: Patient does not have living will or advanced directive. We talked in detail with patient and daughter regarding living will or advanced directive. After discussion of benefits/risks procedures involved with full code, DNR CC arrest and DNR CC, the patient and h er daughter opted for DNRCC arrest with no intubation. Patient doesn't want artificial life support including intubation, tube feed, ventilator and/chest compression, central venous catheter, vasopressor and DC shock if needed Total time spent in [id number] encounter in discussion of advanced directive 16 minutes. Microbiology Past 72 Hours 04/22/22 16:10 Nasal Secretion SARS-CoV-2 Antigen (Rapid) - Final Laboratory Results 04/22/22 07:55: Sodium 140, Potassium 3.6, Chloride 103, Carbon Dioxide 28.0, Anion Gap 9, BUN 25 H, Creatinine 0.95, Estim Creat Clear Calc 35.06, Est GFR (MDRD) Af Amer 73, Est GFR (MDRD) Non-Af 60, BUN/Creatinine Ratio 26.3 H, Glucose 112 H, Calcium 9.8, Troponin I High Sens 16, TSH 0.31 L 04/22/22 13:07: Troponin I High Sens 1329 H* 04/22/22 13:58: PT Cancelled, INR Cancelled, APTT Cancelled 04/22/22 14:38: PT Cancelled, INR Cancelled, APTT Cancelled 04/22/22 15:30: PT 14.8, INR 1.2, APTT > 200.0 H* 04/22/22 15:30: Magnesium 2.0 04/22/22 15:30: Phosphorus 3.2 04/22/22 15:30: Troponin I High Sens 1573 H* 04/23/22 01:57: APTT 51.7 H 04/23/22 05:50: WBC 6.5, RBC 4.43, Hgb 13.5, Hct 43.8, MCV 98.9, MCH 30.5, MCHC 30.8 L, RDW Std Deviation 45.0 H, RDW Coeff of Shi 12.3, Plt Count 147 L, MPV 10.1, Immature Gran % (Auto) 0.200, Neut % (Auto) 42.2 L, Lymph % (Auto) 47.3 H, [place] % (Auto) 8.9, Eos % (Auto) 0.9, Baso % (Auto) 0.5, Absolute Neuts (auto) 2.8, Absolute Lymphs (auto) 3.08, Nucleated RBC % 0 04/23/22 05:50: Sodium 140, Potassium 4.0, Chloride 107, Carbon Dioxide 27.0, Anion Gap 6, BUN 21 H, Creatinine 0.81, Estim Creat Clear Calc 41.12, Est GFR (MDRD) Af Amer 88, Est GFR (MDRD) Non-Af 73, BUN/Creatinine Ratio 26.0 H, Glucose 96, Calcium 9.1, Triglycerides 68, Cholesterol 132, LDL Cholesterol 67, VLDL Cholesterol 14, HDL Cholesterol 51, TSH 0.52, Free T4 1.13 04/23/22 08:06: APTT 70.9 H Charges/Coding Visit Charges Inpatient E&M: 24794 Subs Hosp L2
[2022-04-23] MEDS: Metoprolol Tartrate 50 MG Tablet PO (22:28)
[2022-04-23] MEDS: Atorvastatin Calcium 40 MG Tablet PO (22:29)
[2022-04-24] VITALS (13 sets, daily range): BP systolic 111–151; BP diastolic 53–73; PULSE 45–57; RESP 16–18; TEMP 36.1–36.6; O2SAT 95–99
--- NOTE | 2022-04-24 05:00 | EKG12_ITS ---
Test Reason : Blood Pressure : / mmHG Vent. Rate : 063 BPM Atrial Rate : 063 BPM P-R Int : 146 ms QRS Dur : 078 ms QT Int : 426 ms P-R-T Axes : 056 047 -10 degrees QTc Int : 435 ms Normal sinus rhythm with sinus arrhythmia Nonspecific ST abnormality Abnormal ECG When compared with ECG of 22-APR-2022 07:54, MANUAL COMPARISON REQUIRED, DATA IS UNCONFIRMED Confirmed by NILA BUCHANAN, MAURA ([id number]), editor department DOTTY RAI ([id number]) on 04/25/2022 9:27:37 AM Referred By: DARRIAN Confirmed By:MAURA DOTSON MD
[2022-04-24] MEDS: Clopidogrel Bisulfate 75 MG Tablet PO (06:12)
[2022-04-24] MEDS: Aspirin E.C. 81 MG Tablet PO (06:12)
[2022-04-24] MEDS: Metoprolol Tartrate 50 MG Tablet PO (06:15)
[2022-04-24 07:46] LABS: Anion Gap 7 (5-15); BUN 17 mg/dL (7-18); Chloride 105 mmol/L (98-107); Creatinine, Serum 0.71 mg/dL (0.55-1.02); EST Glomerular Filtration Rate 85 mL/min (>60); Est Glom Filt Rate - Afr Amer 103 mL/min (>60); Glucose 88 mg/dL (74-106); Potassium 3.8 mmol/L (3.5-5.1); Sodium Level 139 mmol/L (136-145)
--- NOTE | 2022-04-24 09:52 | CL.D_ITS ---
Patient Name: JEOVANNY VAZ Study Date: 04/24/2022 Performing: Cony Mosley MD Ht: 60 inches 152.4 cm : 1945 Wt: 107.1 lbs 48.5 kg Age: 76 Gender: female BSA: 1.43 PROCEDURE(S) PERFORMED [id number])[facility] CLINICAL PROFILE AND INDICATIONS Indications: ACS > 24 hrs Heart Failure: None Stress/Imaging Stress/Image Study Performed: No Angina Classification Anginal Classification w/in 2 Weeks: CCS IV CONCLUSIONS 80%cacified Prox LAD, 70% distal LAD 90% heavily calcified Prox LCX INTER COM INSTALLER Mid RCA; RPDA filling retrogradely via collaterals from the left system RECOMMENDATIONS Surgery consult for coronary revascularization DESCRIPTION OF PROCEDURE The patient arrived to the procedure lab. The risks and benefits of the procedure as well as a full description of our services here and current unavailability of surgical backup were fully explained to the patient and/or their significant other prior to the catheterization. The Timeout was completed, verifying the correct patient and procedure. The patient's procedural site was prepped and draped in the usual fashion. Local anesthetic was given subcutaneously to right radial region with Lidocaine 2%. Using a modified Seldinger technique, arterial access was obtained via the right radial artery, a 6Fr sheath was inserted. Left Coronary Artery selective angiography was performed in multiple views using a 5 Fr. 4.0 Wesley catheter. Right Coronary Artery selective angiography was then performed in multiple views using a 5 Fr. 4.0 Wesley catheter.The arterial sheath was pulled and a TR Band was applied for hemostasis CORONARY ANGIOGRAPHY DOMINANCE: Right Dominant LEFT ANTERIOR DESCENDING ARTERY: LAD: Calcified 80% Proximal lesion in LAD Tubular 70% Mid lesion in LAD CIRCUMFLEX ARTERY: CIRCUMFLEX: Calcified 90% Proximal lesion in Circumflex Tubular 80% Mid lesion in Circumflex RIGHT CORONARY ARTERY: RCA: Calcified 100% Mid lesion in RCA COLLATERAL FLOW: Collateral flow from LAD Septal to Right PDA COMPLICATIONS No Complications PROCEDURE MEDICATIONS Fentanyl 25 mcg IV Versed 1 mg IV Versed 1 mg IV Fentanyl 25 mcg IV Oxygen: 2 L/min via nasal cannula Heparin given IA 04/24/2022 09:22:27 Verapamil 2.5mg, Ntg 200mcgs, 2000 units of Heparin given IA 04/24/2022 09:22:27 IV Bolus: .9 NaCl 250 ml total 04/24/2022 09:16:57 SUMMARY OF HEMODYNAMIC DATA Time AIR REST ECG 08:58:20 AO 99/39 (61) SA 09:24:02 Signed By Cony Mosley MD On 04/24/2022 09:51:19 Cony Mosley MD
--- NOTE | 2022-04-24 09:54 | PCM.DC.SUM ---
Providers Date of Admission: 04/22/22 Date of Discharge: 04/24/22 Primary Care Physician: Dr. Silke Solorio MD Consultations 04/22/22 15:05 Consult: Cardiology Routine Consulting Provider: Cony Mosley Reason for Consult: NSTEMI, Pappitation EMERGENT Consult: No MD Notified: Yes Date Notified: 04/22/22 Time Notified: 15:05 Method of Notification: ED Physician Initiated Reason For Visit: NSTEMI Diagnosis Discharge Diagnosis (1) Non-ST elevated myocardial infarction: Status: Acute Code(s): I21.4 - Non-ST elevation (NSTEMI) myocardial infarction Medications at Discharge Home Medications aspirin 81 mg chewable tablet 81 mg PO MOWEFR heart 04/22/22 atenolol 50 mg tablet 50 mg PO DAILY blood pressure 04/22/22 levothyroxine 75 mcg tablet 75 mcg PO DAILY thyroid 04/22/22 lovastatin 40 mg tablet 40 mg PO DAILY cholesterol 04/22/22 Hospital Course Summary of Care Provided Hospital Course: This 76-year-old female came to ED for narrow complex sinus tachycardia and found to have high troponin and abnormal EKG. 1. Non-STEMI: EKG shows slight ST depression V3 to V6. KRYSTEN risk score 4/7. Patient is being admitted in PCU. Started on IV heparin drip and aspirin. Patient already on amlodipine continued. High intensity statin atorvastatin. 2D echo was ordered. Cardiology consulted to evaluate for cardiac cath. Patient does not have chest pain pressure tightness. 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 Circumflex calcified 80% proximal and tubular 80% mid lesion. RCA calcified 100% mid lesion with collateral flow from LAD septal to right PDA. 2D echo EF 60% diastolic dysfunction indeterminate. LA severely enlarged. Mild MR with diffuse mitral valve thickening. With above cardiac cath findings of triple-vessel disease, Dr. Mosley called cardiac surgeon, Dr. Llamas, [facility] and he accepted the patient for cardiac bypass surgery. The findings of cardiac cath, echo and further CABG surgical plan discussed with the patient and daughter near the bedside. Transfer papers signed. 2. Narrow complex tachycardia most probably sinus tachycardia with PAC: Patient did not had twelve-lead EKG when she had sinus tachycardia. She has history of PACs/PVCs. Currently normal sinus rhythm and heart rate is controlled. 04/23: Atenolol switched to metoprolol twice daily. Might need EP referral as an outpatient. 3. Abnormal low TSH probably lab error/variation: TSH is low 0.31, Slightly below low normal 0.35. 04/23: Repeat TSH and free T4 normal. Continue patient home dose of Synthroid 75 mcg daily. 5. Hypertension and dyslipidemia: Fasting lipid profile shows LDL 67, TG 68, total cholesterol 132 and HDL 51 all in normal range. VTE prophylaxis: Patient was on heparin drip and that was discontinued. Transfer to [facility] and further management plan discussed with the patient and her daughter and all questions were answered to patient's satisfaction. Total time spent, exact 35 minutes on discharge meds reconciliation, examination, coordination of care with nurses and ancillary staff, review of imaging and blood test and discussion with the patient on follow-up instructions. Living will/advanced directive/end of life care: Patient does not have living will or advanced directive. We talked in detail with patient and daughter regarding living will or advanced directive. After discussion of benefits/risks procedures involved with full code, DNR CC arrest and DNR CC, the patient and her daughter opted for DNRCC arrest with no intubation. Patient doesn't want artificial life support including intubation, tube feed, ventilator and/chest compression, central venous catheter, vasopressor and DC shock if needed Total time spent in [id number] encounter in discussion of advanced directive 16 minutes. Laboratory Results 04/22/22 15:30: Troponin I High Sens 1573 H* 04/23/22 01:57: APTT 51.7 H 04/23/22 05:50: WBC 6.5, RBC 4.43, Hgb 13.5, Hct 43.8, MCV 98.9, MCH 30.5, MCHC 30.8 L, RDW Std Deviation 45.0 H, RDW Coeff of Shi 12.3, Plt Count 147 L, MPV 10.1, Immature Gran % (Auto) 0.200, Neut % (Auto) 42.2 L, Lymph % (Auto) 47.3 H, [place] % (Auto) 8.9, Eos % (Auto) 0.9, Baso % (Auto) 0.5, Absolute Neuts (auto) 2.8, Absolute Lymphs (auto) 3.08, Nucleated RBC % 0 04/23/22 05:50: Sodium 140, Potassium 4.0, Chloride 107, Carbon Dioxide 27.0, Anion Gap 6, BUN 21 H, Creatinine 0.81, Estim Creat Clear Calc 41.12, Est GFR (MDRD) Af Amer 88, Est GFR (MDRD) Non-Af 73, BUN/Creatinine Ratio 26.0 H, Glucose 96, Calcium 9.1, Triglycerides 68, Cholesterol 132, LDL Cholesterol 67, VLDL Cholesterol 14, HDL Cholesterol 51, TSH 0.52, Free T4 1.13 04/23/22 08:06: APTT 70.9 H Microbiology Past 72 Hours 04/22/22 16:10 Nasal Secretion SARS-CoV-2 Antigen (Rapid) - Final Laboratory Results 04/24/22 06:06: Sodium 139, Potassium 3.8, Chloride 105, Carbon Dioxide 27.0, Anion Gap 7, BUN 17, Creatinine 0.71, Estim Creat Clear Calc 33.30, Est GFR (MDRD) Af Amer 103, Est GFR (MDRD) Non-Af 85, BUN/Creatinine Ratio 24.0 H, Glucose 88, Calcium 9.0 Physical Exam Narrative Seen and examined. Patient has does not have chest pain or shortness of breath. Patient taken to cardiac cath in the morning. monitor and storage bin tender shows sinus rhythm Physical exam General: Alert, Oriented x3, Cooperative HEENT: Atraumatic, PERRLA, EOMI, Normocephalic Oral: No Gingival or Mucosal Lesions/ Ulcerations Neck: Supple, No JVD, Negative Carotid Bruits Lungs: Air entry equal in bilateral lung bases. No crepitation/rhonchi Cardiovascular: Sinus, PAC, normal S1, Normal S2, soft systolic murmur over cardiac apex. Abdomen: Bowel Sounds Present, Soft, Non Tender, Non-Distended : No renal angle tenderness. No suprapubic tenderness. Extremities: Right radial artery access site. No hematoma/bruise. No ankle edema, Capillary Refill Less than 3 Seconds Skin: No rashes, No breakdown Musculoskeletal: No Tenderness to Palpation of Joints or Extremities Neurological: Cranial nerves II-XII grossly intact, DTR 2+/4 and Symmetrical, Neuro grossly intact Psych/Mental Status: Normal Affect, Appropriate. Weight / BMI Weight Weight: 106 lb 14.787 oz Body Mass Index (BMI) 21.2 ABG / Lab / Microbiology Data Result Diagrams: 04/23/22 05:50 04/24/22 06:06 Laboratory: Laboratory Results - last 24 hr 04/24/22 06:06: Sodium 139, Potassium 3.8, Chloride 105, Carbon Dioxide 27.0, Anion Gap 7, BUN 17, Creatinine 0.71, Estim Creat Clear Calc 33.30, Est GFR (MDRD) Af Amer 103, Est GFR (MDRD) Non-Af 85, BUN/Creatinine Ratio 24.0 H, Glucose 88, Calcium 9.0 Microbiology: Microbiology 04/22/22 16:10 Nasal Secretion SARS-CoV-2 Antigen (Rapid) - Final Meaningful Use Info Meaningful Use Diagnoses (Choose all that apply): None applicable Discharge Plan Admission Admit Date/Time: 04/22/22 13:52 Attending Provider: Jeferson Juan Primary Care Provider: Silke Solorio Consulting Providers: Cony Mosley Discharge Orders/Prescriptions Prescriptions: No Action lovastatin 40 mg tablet 40 mg PO DAILY Label Comments: TAKE 1 TABLET BY MOUTH ONCE DAILY atenolol 50 mg tablet 50 mg PO DAILY Label Comments: TAKE 1 TABLET BY MOUTH ONCE DAILY levothyroxine 75 mcg Tablet 75 mcg PO DAILY aspirin 81 mg Tablet,Chewable 81 mg PO MOWEFR Referrals / Follow Up: Silke Solorio MD [Primary Care Provider] - Disposition Discharge Orders: Discharge Patient (Routine); Ordered 04/24/22 Ordered By: Dr. Jeferson Juan Charges/Coding Visit Charges Inpatient E&M: 14893 Disch Hosp
[2022-04-24] MEDS: Levothyroxine 75 MCG Tablet PO (10:07)
== END 2022-04-24 11:52 | disposition short-term general hospital (02) | DRG 282 ==
LOC: ED 13:43 → PCU 14:13
PROVIDERS: Admitting Provider Internal Medicine; Emergency Provider Emergency Medicine; PCP Family Medicine; Visit Provider Internal Medicine
DX: I21.4 Non-ST elevation (NSTEMI) myocardial infarction (principal); E07.89 Other specified disorders of thyroid; E78.00 Pure hypercholesterolemia, unspecified; I10 Essential (primary) hypertension; E78.5 Hyperlipidemia, unspecified; I34.0 Nonrheumatic mitral (valve) insufficiency; Z51.5 Encounter for palliative care; Z79.82 Long term (current) use of aspirin; Z66 Do not resuscitate; Z86.16 Personal history of COVID-19; I49.1 Atrial premature depolarization
CPT/HCPCS: 36415; 71045; 80048; 80061; 83735; 84100; 84439; 84443; 84484; 85025; 85610; 85730; 87811; 93005; 93306; 93454; 99152; 99284; J7120; Q9967; A4216; C1769; C1894

== ENCOUNTER → 2022-07-13 | Outpatient (CLI) | payer MEDICARE, SELFPAY ==
[2022-07-13 12:03] LABS: Anion Gap 5 (5-15); BUN 17 mg/dL (7-18); BUN/Creat Ratio 21.3 RATIO (10-20); Calcium,Total 9.2 mg/dL (8.5-10.1); Chloride 108 mmol/L (98-107); EST Glomerular Filtration Rate 74 mL/min (>60); Est Glom Filt Rate - Afr Amer 89 mL/min (>60); Glucose 114 mg/dL (74-106); Sodium Level 140 mmol/L (136-145)
[2022-07-13 12:07] LABS: BNP,B-Type NATRIURETIC PEPTIDE 503.7 pg/mL (0-100)
== END | disposition home or self-care (01) ==
LOC: LAB 10:58
PROVIDERS: PCP Family Medicine; Referring Provider Nurse Practitioner Family; Visit Provider Nurse Practitioner Family
DX: R06.02 Shortness of breath (principal); R60.0 Localized edema
CPT/HCPCS: 36415; 80048; 83880

== ENCOUNTER → 2022-07-25 | Outpatient (CLI) | payer MEDICARE, SELFPAY ==
--- NOTE | 2022-07-25 11:06 | RAD_ITS ---
INDICATION: DYSPNEA EXAMINATION/TECHNIQUE: X-RAY - XR Chest 2 Views COMPARISON: 04/22/2022. FINDINGS: LINES/DEVICES: None. LUNGS: Opacity in the right lung base consolidation or atelectasis in the right middle lobe and right lower lobe. Small right pleural effusion. No pneumothorax. MEDIASTINUM: Aorta is atherosclerotic. CARDIAC SILHOUETTE: Not enlarged. Sternal wires. BONES AND SOFT TISSUES: No acute abnormalities. RAD/Chest PA and Lateral IMPRESSION: Small right pleural effusion with right middle lobe and lower lobe atelectasis or consolidation, possible pneumonia. Imaging follow-up is recommended in 3-4 weeks to confirm resolution and rule out underlying abnormality or mass. Electronically Signed: Elsie Sotelo MD at 7:54 EST ,
[2022-07-25 12:31] LABS: Absolute Lymphocyte Count 1.98 X10^3/uL (0.83-4.51); Basophil# 0.02 X10^3/uL; Basophil% 0.3 % (0-1); Eosinophils% 1.7 % (0-5); Hematocrit 41.6 % (37-47); Hemoglobin 13.2 g/dL (12.0-15.0); Lymphocyte # 1.98 X10^3/ul (0.83-4.51); Lymphocyte % 33.3 % (19-41); Mean Corp Hgb Conc 31.7 g/dL (32-36); Mean Corpuscular Hgb 31.1 pg (27.0-32.0); Mean Corpuscular Volume 98.1 fL (81-99); Mean Platelet Vol. 10.4 fl (6.2-12.0); Monocyte# 0.81 X10^3/uL; Monocyte% 13.6 % (0-10); NRBC Flagged by Analyzer 0 % (0-5); Neutrophil # 3.02 X10^3/uL (2.7-7.7); Neutrophil % 50.9 % (47-70); Platelet Count 176 K/mm3 (150-450); RBC Distribution Width CV 14.1 % (11.6-14.6); RBC Distribution Width SD 50.7 fl (35.1-43.9); Red Blood Count 4.24 M/mm3 (4.2-5.4); White Blood Count 5.9 K/mm3 (4.4-11.0)
[2022-07-25 13:30] LABS: ALB/GLOB Ratio 0.9 RATIO (0.9-2.4); AST(SGOT) 29 U/L (15-37); Alanine Aminotransfer ALT/SGPT 32 U/L (13-56); Albumin, Serum 3.8 g/dL (3.2-5.0); Alkaline Phosphatase 128 U/L (45-117); Anion Gap 8 (5-15); BUN 18 mg/dL (7-18); BUN/Creat Ratio 23.4 RATIO (10-20); Calcium,Total 9.2 mg/dL (8.5-10.1); Chloride 105 mmol/L (98-107); Creatinine, Serum 0.77 mg/dL (0.55-1.02); EST Glomerular Filtration Rate 77 mL/min (>60); Est Glom Filt Rate - Afr Amer 93 mL/min (>60); Globulin 4.2 g/dL (2.2-4.2); Glucose 76 mg/dL (74-106); Potassium 3.8 mmol/L (3.5-5.1); Sodium Level 140 mmol/L (136-145)
== END | disposition home or self-care (01) ==
LOC: MTLAB 11:04
PROVIDERS: PCP Family Medicine; Referring Provider Family Medicine; Visit Provider Family Medicine
DX: J90 Pleural effusion, not elsewhere classified (principal); I70.0 Atherosclerosis of aorta; I25.118 Atherosclerotic heart disease of native coronary artery with other forms of angina pectoris; R06.00 Dyspnea, unspecified; R60.9 Edema, unspecified; I10 Essential (primary) hypertension
CPT/HCPCS: 36415; 71046; 80053; 84443; 85025

== ENCOUNTER → 2022-08-18 | Outpatient (CLI) | payer MEDICARE, SELFPAY ==
[2022-08-18 13:30] LABS: Anion Gap 5 (5-15); BUN 18 mg/dL (7-18); BUN/Creat Ratio 22.1 RATIO (10-20); Calcium,Total 9.6 mg/dL (8.5-10.1); Chloride 105 mmol/L (98-107); Creatinine, Serum 0.82 mg/dL (0.55-1.02); EST Glomerular Filtration Rate 72 mL/min (>60); Est Glom Filt Rate - Afr Amer 87 mL/min (>60); Glucose 91 mg/dL (74-106); Potassium 4.2 mmol/L (3.5-5.1); Sodium Level 140 mmol/L (136-145)
[2022-08-18 13:39] LABS: Thyroid Stim Hormone (TSH) 0.08 uIU/mL (0.358-3.74)
== END | disposition home or self-care (01) ==
LOC: LAB 11:37
PROVIDERS: PCP Family Medicine; Referring Provider Nurse Practitioner Family; Visit Provider Nurse Practitioner Family
DX: R06.02 Shortness of breath (principal); R60.0 Localized edema; I10 Essential (primary) hypertension
CPT/HCPCS: 36415; 80048; 84443

== ENCOUNTER → 2022-10-24 | Outpatient (CLI) | payer MEDICARE, SELFPAY ==
[2022-10-24 14:07] LABS: Thyroid Stim Hormone (TSH) 0.04 uIU/mL (0.358-3.74)
== END | disposition home or self-care (01) ==
PROVIDERS: PCP Family Medicine; Referring Provider Family Medicine; Visit Provider Family Medicine
DX: E03.9 Hypothyroidism, unspecified (principal)
CPT/HCPCS: 36415; 84443

== ENCOUNTER → 2022-12-22 | Outpatient (CLI) | payer MEDICARE, SELFPAY ==
[2022-12-22 16:08] LABS: Thyroid Stim Hormone (TSH) 0.27 uIU/mL (0.358-3.74)
== END | disposition home or self-care (01) ==
LOC: MFPLAB 13:52
PROVIDERS: PCP Family Medicine; Visit Provider Family Medicine
DX: E03.9 Hypothyroidism, unspecified (principal)
CPT/HCPCS: 36415; 84443

== ENCOUNTER → 2023-02-16 | Outpatient (CLI) | payer MEDICARE, SELFPAY ==
[2023-02-16 15:33] LABS: AST(SGOT) 35 U/L (15-37); Alanine Aminotransfer ALT/SGPT 31 U/L (13-56); CPK Total, Creatine Kinase 71 U/L (26-192); Cholesterol 91 mg/dL (200); High Density Lipoprotein 47 mg/dL; Triglycerides 66 mg/dL; Very Low Density Lipoprotein 13 mg/dL (5-40)
[2023-02-16 15:38] LABS: Thyroid Stim Hormone (TSH) 0.32 uIU/mL (0.358-3.74)
== END | disposition home or self-care (01) ==
LOC: MFPLAB 11:26
PROVIDERS: PCP Family Medicine; Visit Provider Internal Medicine Cardiovascular Disease
DX: I25.10 Atherosclerotic heart disease of native coronary artery without angina pectoris (principal); R06.02 Shortness of breath; R60.0 Localized edema; I10 Essential (primary) hypertension; E78.00 Pure hypercholesterolemia, unspecified
CPT/HCPCS: 36415; 80061; 82550; 84443; 84450; 84460

== ENCOUNTER → 2023-09-14 | Outpatient (CLI) | payer MEDICARE, SELFPAY ==
[2023-09-14 12:52] LABS: ALB/GLOB Ratio 0.9 RATIO (0.9-2.4); AST(SGOT) 34 U/L (15-37); Alanine Aminotransfer ALT/SGPT 35 U/L (13-56); Albumin, Serum 3.9 g/dL (3.2-5.0); Alkaline Phosphatase 113 U/L (45-117); Anion Gap 5 (5-15); BUN 19 mg/dL (7-18); BUN/Creat Ratio 18.6 RATIO (10-20); Calcium,Total 9.8 mg/dL (8.5-10.1); Chloride 103 mmol/L (98-107); Cholesterol 107 mg/dL (200); Creatinine, Serum 1.02 mg/dL (0.55-1.02); EST Glomerular Filtration Rate 55 mL/min (>60); Est Glom Filt Rate - Afr Amer 67 mL/min (>60); Globulin 4.2 g/dL (2.2-4.2); Glucose 92 mg/dL (74-106); High Density Lipoprotein 58 mg/dL; Potassium 4.1 mmol/L (3.5-5.1); Protein, Total 8.1 g/dL (6.4-8.2); Sodium Level 135 mmol/L (136-145); Thyroid Stim Hormone (TSH) 0.16 uIU/mL (0.358-3.74); Triglycerides 54 mg/dL; Very Low Density Lipoprotein 11 mg/dL (5-40)
== END | disposition home or self-care (01) ==
LOC: MFPLAB 10:31
PROVIDERS: Internal Medicine Cardiovascular Disease; PCP Family Medicine; Visit Provider Family Medicine
DX: R00.2 Palpitations (principal); I47.10 Supraventricular tachycardia, unspecified; I25.10 Atherosclerotic heart disease of native coronary artery without angina pectoris; E78.00 Pure hypercholesterolemia, unspecified
CPT/HCPCS: 36415; 80053; 80061; 84443

== ENCOUNTER → 2023-11-16 | Outpatient (CLI) | payer MEDICARE, SELFPAY ==
[2023-11-16 17:58] LABS: Thyroid Stim Hormone (TSH) 1.47 uIU/mL (0.358-3.74)
== END | disposition home or self-care (01) ==
LOC: MTLAB 14:27
PROVIDERS: PCP Family Medicine; Referring Provider Family Medicine; Visit Provider Family Medicine
DX: E03.9 Hypothyroidism, unspecified (principal)
CPT/HCPCS: 36415; 84443

== ENCOUNTER → 2024-08-26 | Outpatient (CLI) | payer MEDICARE, SELFPAY ==
[2024-08-26 18:46] LABS: AST(SGOT) 34 U/L (15-37); Alanine Aminotransfer ALT/SGPT 34 U/L (13-56); Anion Gap 6 (5-15); BUN 19 mg/dL (7-18); BUN/Creat Ratio 18.4 RATIO (10-20); Calcium,Total 9.6 mg/dL (8.5-10.1); Chloride 101 mmol/L (98-107); Cholesterol 93 mg/dL (200); Creatinine, Serum 1.03 mg/dL (0.55-1.02); EST Glomerular Filtration Rate 55 mL/min (>60); Est Glom Filt Rate - Afr Amer 66 mL/min (>60); Glucose 104 mg/dL (74-106); High Density Lipoprotein 47 mg/dL; Potassium 4.6 mmol/L (3.5-5.1); Sodium Level 135 mmol/L (136-145); T4 Total, Thyroxin 10.2 ug/dL (4.8-13.9); Thyroid Stim Hormone (TSH) 0.562 uIU/mL (0.358-3.740); Triglycerides 60 mg/dL; Very Low Density Lipoprotein 12 mg/dL (5-40)
[2024-08-26 19:45] LABS: Protein, Urine (Random) < 6.0 mg/dL (<11.9)
== END | disposition home or self-care (01) ==
LOC: MFPLAB 15:05
PROVIDERS: PCP Family Medicine; Referring Provider Family Medicine; Visit Provider Family Medicine
DX: I10 Essential (primary) hypertension (principal); E03.9 Hypothyroidism, unspecified; E78.00 Pure hypercholesterolemia, unspecified
CPT/HCPCS: 36415; 80048; 80061; 82570; 84156; 84436; 84443; 84450; 84460

== ENCOUNTER → 2025-01-20 | Outpatient (CLI) | payer MEDICARE, SELFPAY | END | disposition home or self-care (01) | LOC: PSN 10:25 | PROVIDERS: PCP Family Medicine; Referring Provider Nurse Practitioner Gerontology; Visit Provider Nurse Practitioner Gerontology | DX: R00.1 Bradycardia, unspecified (principal); I48.0 Paroxysmal atrial fibrillation | CPT/HCPCS: 93225; 93226 ==